=== PATIENT | female | born 1990 | race Caucasian/White ===

== ENCOUNTER 2018-04-21 22:10 | Emergency (ER) | payer SELFPAY ==
[~2018-04-21] VITALS: Ht 175.3 cm; Wt 68.0 kg
[2018-04-21 22:17] VITALS: Ht 175.3 cm; Wt 68.0 kg
[2018-04-21] MEDS ORDERED: DILANTIN100 MG PO (22:18)
[2018-04-21] MEDS ORDERED: CELEXA10 MG PO (22:18)
[2018-04-22] MEDS ORDERED: FLAGYL500 MG PO (00:56)
[2018-04-22 01:24] VITALS: BP 123/74
[2018-04-26 08:08] LABS: CHLAMYDIA TRACHOMATIS, NAA Negative (Negative)
== END 2018-04-22 01:26 | disposition home or self-care (01) ==
LOC: D.ER 22:10
PROVIDERS: Family Medicine
DX: N89.8 Other specified noninflammatory disorders of vagina (principal); F17.200 Nicotine dependence, unspecified, uncomplicated

== ENCOUNTER 2018-08-31 11:32 | Emergency (ER) | payer SELFPAY ==
[~2018-08-31] VITALS: Ht 175.3 cm; Wt 68.2 kg
[~2018-08-31 11:32] MED LIST: CELEXA10 MG PO; DILANTIN100 MG PO; FLAGYL500 MG PO
[2018-08-31 11:34] VITALS: BP 110/69; Ht 175.3 cm; Wt 68.2 kg
== END 2018-08-31 12:30 | disposition left against medical advice (07) ==
LOC: D.ER 11:32
DX: H92.03 Otalgia, bilateral (principal)

== ENCOUNTER 2019-07-20 13:04 | Emergency (ER) | payer MEDICAID ==
[~2019-07-20] VITALS: Ht 175.3 cm; Wt 71.8 kg
[2019-07-20 13:08] VITALS: Ht 175.3 cm; Wt 71.8 kg
[2019-07-20] MEDS ORDERED: DILANTIN100 MG PO (14:06)
[2019-07-20 14:15] VITALS: BP 137/87
== END 2019-07-20 14:15 | disposition home or self-care (01) ==
LOC: D.ER 13:04
DX: G40.909 Epilepsy, unspecified, not intractable, without status epilepticus (principal)

== ENCOUNTER 2019-08-10 22:07 | Emergency (ER) | payer MEDICAID ==
[~2019-08-10] VITALS: Ht 175.3 cm; Wt 71.4 kg
[2019-08-10 22:10] VITALS: Ht 175.3 cm; Wt 71.4 kg
[2019-08-10] MEDS ORDERED: VIBRAMYCIN 100100 MG PO (22:59)
[2019-08-10] MEDS ORDERED: VOLTAREN75 MG PO (22:59)
[2019-08-10 23:47] VITALS: BP 126/88
[2019-08-11] MEDS ORDERED: DILANTIN100 MG PO (21:49)
== END 2019-08-10 23:47 | disposition home or self-care (01) ==
LOC: D.ER 22:07
DX: L03.317 Cellulitis of buttock (principal); F17.200 Nicotine dependence, unspecified, uncomplicated

== ENCOUNTER 2019-08-11 20:56 | Emergency (ER) | payer MEDICAID ==
[~2019-08-11] VITALS: Ht 175.3 cm; Wt 71.2 kg
[~2019-08-11 20:56] MED LIST changes: +VIBRAMYCIN 100100 MG PO; +VOLTAREN75 MG PO
[2019-08-11 20:57] VITALS: Ht 175.3 cm; Wt 71.2 kg
[2019-08-11 21:16] LABS: BASOPHILS 0.4 % (0-2); EOSINOPHILS 0.8 % (0-7); HEMATOCRIT 40.1 % (36.0-48.0); HEMOGLOBIN 13.4 g/dL (12-16); IMMATURE GRANULOCYTES 0.1 % (0-5); LYMPHOCYTES 25.4 % (15-50); MCH 32.8 pg (26.0-34.0); MCHC 33.4 g/dL (31.0-37.0); MCV 98.3 fL (80.0-100.0); MEAN PLATELET VOLUME 10.7 fL (7.4-10.4); MONOCYTES 9.2 % (2-11); NEUTROPHILS 64.1 % (40-80); PLATELET COUNT 289 10x3/uL (130-400); RBC 4.08 10x6/uL (4.00-5.40); RDW 12.6 % (11.5-14.5); WBC 7.3 10x3/uL (4.8-10.8)
[2019-08-11 21:28] LABS: CALC OSMOLALITY 278 mosm/kg (275-300); CALCIUM 8.7 mg/dL (8.5-10.1); CARBON DIOXIDE 29.9 mmol/L (21.0-32.0); CHLORIDE - SERUM 105 mmol/L (98-107); CREATININE - SERUM 0.6 mg/dL (0.6-1.3); GLUCOSE 104 mg/dL (74-106); POTASSIUM - SERUM 3.6 mmol/L (3.5-5.1); SODIUM 139 mmol/L (136-145); UREA NITROGEN 14 mg/dL (7-18); eGFR NON AFRICAN AMERICAN > 90 mL/min (90-120)
[2019-08-11 21:33] LABS: ALKALINE PHOSPHATASE 70 U/L (46-116); ALT (SGPT) 16 U/L (10-68); BILIRUBIN - TOTAL 0.42 mg/dL (0.2-1.3); PHENYTOIN (DILANTIN) 0.2 ug/mL (10.0-20.0); PROTEIN - SERUM 7.8 g/dL (6.4-8.2)
[2019-08-11 21:35] LABS: HCG SERUM NEGATIVE (NEGATIVE)
[2019-08-11 21:46] LABS: APPEARANCE CLEAR (CLEAR); BILIRUBIN NEGATIVE (NEGATIVE); COLOR YELLOW (YELLOW); GLUCOSE NEGATIVE (NEGATIVE); KETONE NEGATIVE (NEGATIVE); NITRITE NEGATIVE (NEGATIVE); PROTEIN TRACE mg/dL (NEGATIVE); SPECIFIC GRAVITY 1.015 (1.005-1.020); UROBILINOGEN NORMAL (NORMAL)
[2019-08-11 21:47] LABS: RED CELLS - URINE 0-5 /hpf (0-5); WHITE CELLS - URINE 0-5 /hpf (NEGATIVE)
[2019-08-11 21:48] LABS: BACTERIA FEW /hpf (NEGATIVE); EPITHELIAL CELLS 0-5 /hpf (0-5); MUCUS >1+ /lpf (NONE SEEN)
[2019-08-11] MEDS ORDERED: DILANTIN100 MG PO (21:49)
[2019-08-11 21:55] LABS: UDS - AMPHET POSITIVE QUAL (NEGATIVE); UDS - BARB NEGATIVE QUAL (NEGATIVE); UDS - BENZO NEGATIVE QUAL (NEGATIVE); UDS - COCAINE NEGATIVE QUAL (NEGATIVE); UDS - OPIATE NEGATIVE QUAL (NEGATIVE); UDS - PCP NEGATIVE QUAL (NEGATIVE); UDS - THC POSITIVE QUAL (NEGATIVE)
[2019-08-11 22:20] VITALS: BP 118/85
== END 2019-08-11 22:20 | disposition home or self-care (01) ==
LOC: D.ER 20:56
PROVIDERS: Family Medicine
DX: G40.909 Epilepsy, unspecified, not intractable, without status epilepticus (principal); F17.200 Nicotine dependence, unspecified, uncomplicated

== ENCOUNTER 2019-09-25 01:46 | Emergency (ER) | payer OTHER ==
[~2019-09-25] VITALS: Ht 175.3 cm; Wt 66.8 kg
[2019-09-25 02:01] VITALS: Ht 175.3 cm; Wt 66.8 kg
[2019-09-25] MEDS ORDERED: SMZ-TMP DS 800-1 TAB PO (02:22)
[2019-09-25] MEDS ORDERED: DILANTIN100 MG PO (02:22)
--- NOTE | 2019-09-25 02:52 | NUR ---
DR GANT NOTIFIED AND REVIEWED PT'S BEHAVIOR AND ASSESSMENT RESULTS. PT IS A LOW RISK. DR GANT STATED TO GIVE RESOURCES. RESOURCES REVIEWED WITH PATIENT AND SHE VERBALIZES UNDERSTANDING.
[2019-09-25 03:44] VITALS: BP 130/76
== END 2019-09-25 03:01 | disposition home or self-care (01) ==
LOC: D.ER 01:46
DX: T63.301A Toxic effect of unspecified spider venom, accidental (unintentional), initial encounter (principal); B99.9 Unspecified infectious disease; L02.91 Cutaneous abscess, unspecified; G40.909 Epilepsy, unspecified, not intractable, without status epilepticus

== ENCOUNTER 2019-11-10 00:03 | Emergency (ER) | payer OTHER ==
[~2019-11-10] VITALS: Ht 175.3 cm; Wt 63.6 kg
[~2019-11-10 00:03] MED LIST changes: +SMZ-TMP DS 800-1 TAB PO
[2019-11-10 00:18] VITALS: Ht 175.3 cm; Wt 63.6 kg
[2019-11-10] MEDS ORDERED: DILANTIN100 MG PO ×2 (00:20→00:33)
[2019-11-10 00:57] VITALS: BP 148/95
== END 2019-11-10 00:57 | disposition home or self-care (01) ==
LOC: D.ER 00:03
DX: Z76.0 Encounter for issue of repeat prescription (principal)

== ENCOUNTER 2020-03-16 14:13 | Emergency (ER) | payer OTHER ==
[~2020-03-16] VITALS: Ht 175.3 cm; Wt 68.2 kg
[2020-03-16 14:27] VITALS: Ht 175.3 cm; Wt 68.2 kg
[2020-03-16 18:00] VITALS: BP 132/94
== END 2020-03-16 18:00 | disposition left against medical advice (07) ==
LOC: D.ER 14:13
DX: R07.81 Pleurodynia (principal); V86.99XA Unspecified occupant of other special all-terrain or other off-road motor vehicle injured in nontraffic accident, initial encounter; Y93.9 Activity, unspecified; Y92.9 Unspecified place or not applicable; Z53.29 Procedure and treatment not carried out because of patient's decision for other reasons

== ENCOUNTER 2020-06-01 14:52 | Emergency (ER) | payer OTHER ==
[~2020-06-01] VITALS: Ht 175.3 cm; Wt 57.7 kg
[2020-06-01 14:58] VITALS: BP 125/81; Ht 175.3 cm; Wt 57.7 kg
[2020-06-01] MEDS ORDERED: IBUPROFEN800 MG PO (16:25)
== END 2020-06-01 16:51 | disposition home or self-care (01) ==
LOC: D.ER 14:52
DX: M25.512 Pain in left shoulder (principal); W22.8XXA Striking against or struck by other objects, initial encounter; Y93.9 Activity, unspecified; Y92.9 Unspecified place or not applicable

== ENCOUNTER 2020-07-19 01:25 | Emergency (ER) | payer OTHER ==
[~2020-07-19] VITALS: Ht 175.3 cm; Wt 58.2 kg
[~2020-07-19 01:25] MED LIST changes: +IBUPROFEN800 MG PO
[2020-07-19 01:26] VITALS: Ht 175.3 cm; Wt 58.2 kg
[2020-07-19 01:54] LABS: BILIRUBIN NEGATIVE (NEGATIVE); KETONE NEGATIVE (NEGATIVE); NITRITE POSITIVE (NEGATIVE); UROBILINOGEN NORMAL mg/dL (< 2)
[2020-07-19 01:55] LABS: WHITE CELLS - URINE RARE HPF (0-4)
[2020-07-19 01:56] LABS: HCG URINE NEGATIVE (NEGATIVE)
[2020-07-19 01:56] LABS: BACTERIA MANY HPF (NONE SEEN)
[2020-07-19 02:00] LABS: UDS - AMPHET POSITIVE QUAL (NEGATIVE); UDS - BARB NEGATIVE QUAL (NEGATIVE); UDS - BENZO NEGATIVE QUAL (NEGATIVE); UDS - COCAINE NEGATIVE QUAL (NEGATIVE); UDS - OPIATE NEGATIVE QUAL (NEGATIVE); UDS - PCP NEGATIVE QUAL (NEGATIVE); UDS - THC NEGATIVE QUAL (NEGATIVE)
[2020-07-19 02:05] LABS: BASOPHILS 0.4 % (0-2); EOSINOPHILS 2.1 % (0-7); HEMATOCRIT 41.7 % (36.0-48.0); HEMOGLOBIN 13.6 g/dL (12-16); IMMATURE GRANULOCYTES 0.2 % (0-5); LYMPHOCYTES 32.3 % (15-50); MCH 32.8 pg (26.0-34.0); MCHC 32.6 g/dL (31.0-37.0); MCV 100.5 fL (80.0-100.0); MEAN PLATELET VOLUME 9.6 fL (7.4-10.4); MONOCYTES 6.9 % (2-11); NEUTROPHILS 58.1 % (40-80); PLATELET COUNT 334 10x3/uL (130-400); RBC 4.15 10x6/uL (4.00-5.40); RDW 12.5 % (11.5-14.5)
[2020-07-19 02:14] LABS: APTT 23.9 SECONDS (22.8-39.4); CALC OSMOLALITY 278 mosm/kg (275-300); CALCIUM 8.4 mg/dL (8.5-10.1); CARBON DIOXIDE 30.2 mmol/L (21.0-32.0); CHLORIDE - SERUM 102 mmol/L (98-107); CREATININE - SERUM 0.7 mg/dL (0.6-1.3); GLUCOSE 90 mg/dL (74-106); INR 0.94 (0.85-1.17); PROTIME 12.6 SECONDS (11.6-15.0); SODIUM 139 mmol/L (136-145); UREA NITROGEN 15 mg/dL (7-18); eGFR NON AFRICAN AMERICAN > 90 mL/min (90-120)
[2020-07-19 02:29] LABS: ALBUMIN 3.6 g/dL (3.4-5.0); ALKALINE PHOSPHATASE 120 U/L (30-120); ALT (SGPT) 24 U/L (10-68); BILIRUBIN - TOTAL 0.11 mg/dL (0.2-1.3); CKMB 0.4 U/L (0.0-3.6); CREATINE KINASE 42 UL (21-215); MAGNESIUM - SERUM 1.9 mg/dL (1.8-2.4); PROTEIN - SERUM 7.5 g/dL (6.4-8.2); TROPONIN-I < 0.017 ng/mL (0.000-0.060)
[2020-07-19] MEDS ORDERED: LEVOFLOXACIN500 MG PO (02:56)
[2020-07-19 03:46] VITALS: BP 139/95
== END 2020-07-19 03:46 | disposition home or self-care (01) ==
LOC: D.ER 01:25
PROVIDERS: Family Medicine
DX: N39.0 Urinary tract infection, site not specified (principal); R42 Dizziness and giddiness; J32.9 Chronic sinusitis, unspecified